=== PATIENT | male | born 1995 | race Hispanic/Latino ===

== ENCOUNTER 2025-01-17 09:02 | Emergency (ER) | payer SELFPAY ==
[~2025-01-17] VITALS: Ht 190.5 cm; Wt 124.7 kg
[2025-01-17 09:16] VITALS: TEMP 98.5
[2025-01-17] MEDS: ACETAMINOPHEN 325 MG TAB PO ONE (09:50)
[2025-01-17] MEDS: DEXAMETHASONE 4 MG TAB PO STA (09:50)
[2025-01-17] MEDS: KETOROLAC TROMETHAMINE 30 MG/ML VIAL IM STA (09:51)
[2025-01-17] MEDS: LIDOCAINE 4% PATCH TP STA (09:51)
[2025-01-17] MEDS ORDERED: NAPROXEN250 MG PO (09:54)
[2025-01-17] MEDS ORDERED: CYCLOBENZAPRINE10 MG PO (09:54)
[2025-01-17 10:11] VITALS: PULSE 85; RESP 16; O2SAT 100
== END 2025-01-17 10:15 | disposition home or self-care (01) ==
LOC: ER 09:29
DX: M54.50 Low back pain, unspecified (principal); X50.0XXA Overexertion from strenuous movement or load, initial encounter
CPT/HCPCS: 99282; J1885; J8540